=== PATIENT | female | born 1985 | race Caucasian/White ===

== ENCOUNTER 2016-03-27 09:38 | Emergency (ER) | payer MEDICAID, OTHER | END 2016-03-27 11:40 | disposition home or self-care (01) | LOC: ER 09:38 | DX: Z71.1 Person with feared health complaint in whom no diagnosis is made (principal); F17.210 Nicotine dependence, cigarettes, uncomplicated | CPT/HCPCS: 36415; 80048; 80307; 81001; 84439; 84443; 84703; 85025 ==